=== PATIENT | female | born 1930 | race American Indian/Alaskan Native ===

== ENCOUNTER 2019-05-08 10:34 | Outpatient (CLI) | payer MEDICARE ==
[2019-05-08] MEDS ORDERED: LIDOCAINE (4%) 40 MG/ML TOPICAL SOLN 50 ML BOTTLE TP ONE (10:49)
== END 2019-05-08 10:35 | disposition home or self-care (01) ==
LOC: EDBD → WOUND 10:34
PROVIDERS: ATTEND Surgery
DX: E10.622 Type 1 diabetes mellitus with other skin ulcer (principal); L89.212 Pressure ulcer of right hip, stage 2; L89.220 Pressure ulcer of left hip, unstageable; L98.492 Non-pressure chronic ulcer of skin of other sites with fat layer exposed; F02.80 Dementia in other diseases classified elsewhere, unspecified severity, without behavioral disturbance, psychotic disturbance, mood disturbance, and anxiety; Z86.73 Personal history of transient ischemic attack (TIA), and cerebral infarction without residual deficits; Z85.3 Personal history of malignant neoplasm of breast; Z87.891 Personal history of nicotine dependence
CPT/HCPCS: 11042; 11045; G0463; 99205

== ENCOUNTER 2019-05-15 10:51 | Outpatient (CLI) | payer MEDICARE ==
[2019-05-15] MEDS ORDERED: LIDOCAINE (4%) 40 MG/ML TOPICAL SOLN 50 ML BOTTLE TP ONE (11:08)
== END 2019-05-15 10:52 | disposition home or self-care (01) ==
LOC: EDBD → WOUND 10:51
PROVIDERS: ATTEND Surgery
DX: E10.622 Type 1 diabetes mellitus with other skin ulcer (principal); L89.212 Pressure ulcer of right hip, stage 2; L89.220 Pressure ulcer of left hip, unstageable; L98.491 Non-pressure chronic ulcer of skin of other sites limited to breakdown of skin; Z87.891 Personal history of nicotine dependence
CPT/HCPCS: 99215; G0463

== ENCOUNTER 2019-05-25 10:57 | Outpatient (CLI) | payer MEDICARE ==
[2019-05-25] MEDS ORDERED: LIDOCAINE (4%) 40 MG/ML TOPICAL SOLN 50 ML BOTTLE TP ONE (11:23)
== END 2019-05-25 10:58 | disposition home or self-care (01) ==
LOC: EDBD → WOUND 10:57
PROVIDERS: ATTEND Surgery
DX: E10.622 Type 1 diabetes mellitus with other skin ulcer (principal); L89.212 Pressure ulcer of right hip, stage 2; L89.220 Pressure ulcer of left hip, unstageable; L98.495 Non-pressure chronic ulcer of skin of other sites with muscle involvement without evidence of necrosis; F01.50 Vascular dementia, unspecified severity, without behavioral disturbance, psychotic disturbance, mood disturbance, and anxiety; Z87.891 Personal history of nicotine dependence
CPT/HCPCS: 36415; 80053; 84134

== ENCOUNTER 2019-05-25 12:34 | Outpatient (CLI) | payer MEDICARE ==
[2019-05-25 13:16] LABS: Albumin 2.8 g/dL (3.9-5); BUN/Creatinine Ratio 21; Blood Urea Nitrogen 17 mg/dL (7-17); Calcium 9.7 mg/dL (8.4-10.2); Hemolysis Index 94; Prealbumin 0.068 g/L (0.200-0.400)
[2019-05-25 14:15] LABS: Alanine Aminotransferase 41 units/L (7-56)
== END 2019-05-25 12:35 | disposition home or self-care (01) ==
LOC: LAB 12:34 → EDBD 12:34 → LAB 12:35
PROVIDERS: ATTEND Surgery
DX: L89.213 Pressure ulcer of right hip, stage 3 (principal)
CPT/HCPCS: 36415; 80053; 84134

== ENCOUNTER 2019-05-29 10:52 | Outpatient (CLI) | payer MEDICARE ==
[2019-05-29] MEDS ORDERED: XYLOCAINE TOPICAL 4% TP ONE (11:04)
== END 2019-05-29 10:53 | disposition home or self-care (01) ==
LOC: WOUND 10:52
PROVIDERS: ATTEND Surgery
DX: E10.622 Type 1 diabetes mellitus with other skin ulcer (principal); L89.212 Pressure ulcer of right hip, stage 2; L89.220 Pressure ulcer of left hip, unstageable; L98.492 Non-pressure chronic ulcer of skin of other sites with fat layer exposed; F01.50 Vascular dementia, unspecified severity, without behavioral disturbance, psychotic disturbance, mood disturbance, and anxiety; Z87.891 Personal history of nicotine dependence; Z86.73 Personal history of transient ischemic attack (TIA), and cerebral infarction without residual deficits; Z85.3 Personal history of malignant neoplasm of breast
CPT/HCPCS: 97597; 97598

== ENCOUNTER 2019-06-05 13:03 | Outpatient (CLI) | payer MEDICARE | END 2019-06-05 13:04 | disposition home or self-care (01) | LOC: WOUND 13:03 | PROVIDERS: ATTEND Surgery | DX: E10.622 Type 1 diabetes mellitus with other skin ulcer (principal); L89.212 Pressure ulcer of right hip, stage 2; L89.220 Pressure ulcer of left hip, unstageable; L98.492 Non-pressure chronic ulcer of skin of other sites with fat layer exposed; F01.50 Vascular dementia, unspecified severity, without behavioral disturbance, psychotic disturbance, mood disturbance, and anxiety; Z87.891 Personal history of nicotine dependence; Z86.73 Personal history of transient ischemic attack (TIA), and cerebral infarction without residual deficits; Z85.3 Personal history of malignant neoplasm of breast | CPT/HCPCS: 99214; G0463 ==

== ENCOUNTER 2019-07-03 12:53 | Outpatient (CLI) | payer MEDICARE ==
[2019-07-03] MEDS ORDERED: LIDOCAINE (4%) 40 MG/ML TOPICAL SOLN 50 ML BOTTLE TP ONE (14:06)
== END 2019-07-03 12:54 | disposition home or self-care (01) ==
LOC: WOUND 12:53
PROVIDERS: ATTEND Surgery
DX: E10.622 Type 1 diabetes mellitus with other skin ulcer (principal); L89.224 Pressure ulcer of left hip, stage 4; L89.212 Pressure ulcer of right hip, stage 2; L98.495 Non-pressure chronic ulcer of skin of other sites with muscle involvement without evidence of necrosis; F01.50 Vascular dementia, unspecified severity, without behavioral disturbance, psychotic disturbance, mood disturbance, and anxiety; Z85.3 Personal history of malignant neoplasm of breast; Z87.891 Personal history of nicotine dependence; Z86.73 Personal history of transient ischemic attack (TIA), and cerebral infarction without residual deficits
CPT/HCPCS: 87075; 87076; 87116; 87186

== ENCOUNTER 2019-07-24 12:56 | Outpatient (CLI) | payer MEDICARE ==
[2019-07-24] MEDS ORDERED: LIDOCAINE (4%) 40 MG/ML TOPICAL SOLN 50 ML BOTTLE TP ONE (14:00)
== END 2019-07-24 12:57 | disposition home or self-care (01) ==
LOC: WOUND 12:56
PROVIDERS: ATTEND Surgery
DX: E10.622 Type 1 diabetes mellitus with other skin ulcer (principal); L89.224 Pressure ulcer of left hip, stage 4; L89.212 Pressure ulcer of right hip, stage 2; L98.495 Non-pressure chronic ulcer of skin of other sites with muscle involvement without evidence of necrosis; F01.50 Vascular dementia, unspecified severity, without behavioral disturbance, psychotic disturbance, mood disturbance, and anxiety; Z85.3 Personal history of malignant neoplasm of breast; Z87.891 Personal history of nicotine dependence; Z86.73 Personal history of transient ischemic attack (TIA), and cerebral infarction without residual deficits